=== PATIENT | male | born 1960 | race Asian ===

== ENCOUNTER 2017-08-03 07:57 | Observation (INO) | payer OTHER ==
[2017-08-03] VITALS (8 sets, daily range): BP systolic 100–148; BP diastolic 64–92; TEMP 97.3–98.4; Ht 193 cm; Wt 78.5 kg
[~2017-08-03] VITALS: Ht 193 cm; Wt 78.5 kg
[2017-08-03 08:58] LABS: PLATELET COUNT 276 K/uL (142-355)
[2017-08-03] MEDS ORDERED: LISI20TA11 PO (14:05)
[2017-08-03] MEDS ORDERED: ZESTRIL40 MG OR (14:11)
[2017-08-03] MEDS ORDERED: MICROZIDE12.5 MG OR (14:11)
[2017-08-03] MEDS ORDERED: POLYETHYLEN1 XX (14:12)
[2017-08-03] MEDS ORDERED: TRAZ50TA36 PO (14:13)
[2017-08-03] MEDS ORDERED: PARO20TA3 PO (14:14)
--- NOTE | 2017-08-03 14:29 | NUR ---
PT ADMITTED TO [facility] FLOOR FROM ER. PT STATES HE WAS WALKING TO THE BATHROOM AT HOME AND FELL AND PASSED OUT AND HIT HIS HEAD. PT IS ALERT AND ORIENTED. PT STATES HE DOES HAVE A HISTORY OF SEIZURES. LAST BOWEL MOVEMENT WAS TODAY. PT DENIES ANY FLANK PAIN OR ABDOMINAL PAIN AT THIS TIME. BOWEL SOUNDS HYPOACTIVE. LUNGS CLEAR UPON ASCULTAION. NAD NOTED. SR UPX2. BED IN LOWEST POSITION. PT ORIENTED TO ROOM AND CALL LIGHT IN REACH. WILL CONTINUE TO MONITOR.
[2017-08-04 03:51] VITALS: BP 152/91; TEMP 97.9
[2017-08-04 05:32] LABS: PLATELET COUNT 223 K/uL (142-355)
[2017-08-04 06:00] LABS: POTASSIUM 4.3 mmol/L (3.6-5.2)
[2017-08-04 08:00] VITALS: BP 147/82; TEMP 98
[2017-08-04 12:00] VITALS: BP 137/99; TEMP 98.8
[2017-08-04 15:52] VITALS: BP 121/73; TEMP 98.6
[2017-08-04 20:00] VITALS: BP 150/93; TEMP 98.7
[2017-08-05] VITALS: BP 130/73; TEMP 98.6
[2017-08-05 03:47] VITALS: BP 102/78; TEMP 98.5
[2017-08-05 06:11] LABS: PLATELET COUNT 225 K/uL (142-355)
[2017-08-05 06:16] LABS: POTASSIUM 4.5 mmol/L (3.6-5.2)
[2017-08-05 08:00] VITALS: BP 109/72; TEMP 97.9
--- NOTE | 2017-08-05 11:30 | NUR ---
DC INSTRUCTIONS GIVEN TO PT. HOME MEDS GIVEN BACK TO PT. PT VERBALIZED UNDERSTANDING. FAMILY CALLED TO ADMISSION NURSE COORDINATOR PT
--- NOTE | 2017-08-05 12:25 | NUR ---
PT LEFT VIA WC AT THIS TIME. NAD NOTED
== END 2017-08-05 12:25 | disposition home or self-care (01) ==
LOC: ED 07:57 → MED/SURG 10:50
PROVIDERS: ADMIT Family Medicine
DX: N17.8 Other acute kidney failure (principal); E86.0 Dehydration; G40.802 Other epilepsy, not intractable, without status epilepticus; F31.89 Other bipolar disorder; I10 Essential (primary) hypertension
CPT/HCPCS: 36415; 80048; 80053; 81000; 82550; 83735; 84100; 85027; 93005; 94760; 96360; 96365; 96366; 96367; 99220; 99284; G0378

== ENCOUNTER 2017-08-13 22:23 | Outpatient (CLI) | payer OTHER ==
[~2017-08-13 22:23] MED LIST: LISI20TA11 PO; MICROZIDE12.5 MG OR; PARO20TA3 PO; POLYETHYLEN1 XX; TRAZ50TA36 PO; ZESTRIL40 MG OR
[2017-08-13] MEDS ORDERED: DOK100 MG PO (23:14)
== END 2017-08-13 22:30 | disposition short-term general hospital (02) ==
LOC: AMB 22:23
DX: R55 Syncope and collapse (principal)
CPT/HCPCS: A0425; A0427

== ENCOUNTER 2017-08-13 22:38 | Emergency (ER) | payer OTHER ==
[~2017-08-13] VITALS: Ht 172.7 cm; Wt 79.4 kg
[2017-08-13] MEDS ORDERED: DOK100 MG PO (23:14)
[2017-08-13 23:31] LABS: PLATELET COUNT 282 K/uL (142-355)
[2017-08-13 23:33] LABS: POTASSIUM 3.8 mmol/L (3.6-5.2)
[2017-08-14 01:19] VITALS: BP 132/81; TEMP 98.1
== END 2017-08-14 01:22 | disposition home or self-care (01) ==
LOC: ED 22:38
PROVIDERS: Specialist
DX: R55 Syncope and collapse (principal)
CPT/HCPCS: 36415; 80053; 82550; 83605; 83735; 84100; 85027; 99284